=== PATIENT | female | born 1955 ===

== ENCOUNTER 2022-12-12 09:57 | Outpatient (REF) | payer MEDICARE, BC, SELFPAY ==
--- NOTE | ~2022-12-12 | XR_ITS ---
EXAMINATION: XR LUMBOSACRAL SPINE WITH OBLIQUES CLINICAL INFORMATION: Left-sided sciatica COMPARISON: None available. TECHNIQUE: AP, both oblique, flexion and extension and lateral views of the lumbar spine. Lateral view of the lumbosacral junction. FINDINGS: Curvature of the lumbar spine to the left. Mild 3 mm anterior subluxation of L4 with respect L5. This is stable on flexion-extension views. Bone alignment is otherwise normal. No fracture or dislocation. Normal disc spaces. Lower lumbar spine facet arthritis. No pars defect. Atherosclerotic disease. XR/XR lumbar spine 6V w bending IMPRESSION: Degenerative changes.
== END 2022-12-12 09:58 | disposition home or self-care (01) ==
LOC: HO.XRAY 09:57
PROVIDERS: Visit Provider Chiropractor
DX: M54.32 Sciatica, left side (principal)
CPT/HCPCS: 72114

== ENCOUNTER 2023-01-12 08:41 | Emergency (ER) | payer MEDICARE, BC, SELFPAY ==
[2023-01-12 08:49] VITALS: BP 177/62; PULSE 101; RESP 16; TEMP 36.6; O2SAT 99; BMI 22.3
--- NOTE | 2023-01-12 09:45 | ED.BACK ---
HPI - Back Pain/Injury General Chief Complaint: Back Pain/Injury Stated Complaint: l leg pain Time Seen by Provider: 01/12/23 09:24 Source: patient and RN notes reviewed Mode of arrival: ambulatory Limitations: no limitations History of Present Illness HPI Narrative: This is a 67-year-old female, with a past medical history of arthritis,, hyperlipidemia, presenting to the emergency department with complaints of left low back pain x1 month. Patient denies any recent trauma or injury. She states that she believes that she exacerbated back pain over the winter time when she was playing puzzles. She states that she is originally from [place] and is unable to get back to her home as the car ride is too long especially with her low back pain. Patient has gone to an urgent care 2 times over the course of the last month and was given steroid pack and Flexeril which she has taken. She states that the steroids helped her back pain significantly but as soon as she was off of the steroids her pain returned. She states that the muscle relaxant did not help her pain at all. She was seen by a chiropractor who ordered an x-ray through [facility]. She is unsure about these results. She denies any saddle anesthesia, no urinary or bowel incontinence. No fevers, chills, abdominal pain, nausea, vomiting, diarrhea, urinary frequency or urgency, dysuria, or hematuria. No other complaints or concerns at this time. MD elicited complaint: back pain Onset (ago): week(s) Timing: constant and progressively worsening Severity: severe Similar Symptoms Previously: Yes Quality: aching Location: lumbar spine and left lower back Radiation: left leg below the knee Exacerbating factors: movement Relieving factors: none Associated symptoms: denies other symptoms Treatments prior to arrival: NSAIDS Work related injury: No Related Data Previous Rx's Medication Instructions Recorded methocarbamol 500 mg tablet 500 mg PO QID #30 tabs 01/12/23 prednisone 50 mg tablet 50 mg PO DAILY 5 days #5 tabs 01/12/23 Allergies Allergy/AdvReac Type Severity Reaction Status Date / Time Penicillins [PENICILLINS] Allergy Unknown ANGIOEDEMA Unverified 03/18/20 19:35 Review of Systems Review of Systems: Constitutional: No Weight loss, No Fever, No Chills, No Night Sweats, No Fatigue, No Malaise ENT/Mouth: No Hearing loss, No Ear Pain, No Nasal Congestion, No Sinus Pain, No Hoarseness, No sore throat, No Rhinorrhea, No Swallowing Difficulty Eyes: No Eye Pain, No Swelling, No Redness, No Foreign Body, No Discharge, No Vision Changes Cardiovascular: No Chest Pain, No SOB, No Dyspnea on Exertion, No Orthopnea, No Edema, No Palpitations Respiratory: No Cough, No Sputum, No Wheezing, No Smoke Exposure, No Dyspnea Gastrointestinal: No Nausea, No Vomiting, No Diarrhea, No Constipation, No Abdominal pain, No Hematochezia, No Melena Genitourinary: No irregular bleeding, No Dysuria, No Urinary Frequency, No Hematuria, No Urinary Incontinence/retention, No Urgency, No Flank Pain, No Urinary Flow Changes, No Hesitancy Musculoskeletal: +back pain, No joint pain, No Myalgias, No Joint Swelling Skin: No Skin Lesions, No rash Neuro: No Weakness, No Numbness, No Paresthesias, No Loss of Consciousness, No Dizziness, No Headache Psych: No Anxiety/Panic, No Depression, No SI/HI/AH/VH, No Social Issues, Heme/Lymph: No Bruising, No Bleeding,No Lymphadenopathy Endocrine: No Polyuria, No Polydipsia, No Temperature Intolerance Yes all other systems are reviewed and are negative Constitutional: Constitutional: Reports as per [facility] Social History Social History Advance Directives: No Advance Directives Information Provided: No Physical Exam Vital Signs: Vital Signs: Last Vital Signs Temp 98 F 01/12/23 08:49 Pulse 101 H 01/12/23 08:49 Resp 16 01/12/23 08:49 BP 177/62 H 01/12/23 08:49 Pulse Ox 99 01/12/23 08:49 O2 Del Method Room Air 01/12/23 08:49 BMI result Body Mass Index 22.3 Const: General: cooperative, comfortable and no acute distress Orientation/consciousness: patient oriented x3 Limitations: no limitations HEENT: Head: Yes normal to inspection, Yes normocephalic and Yes atraumatic Ears: hearing grossly normal bilaterally General nose exam: Normal external nose present Face and sinus: Yes normal facial exam Mouth: Normal oral and palatal mucosa present, oropharynx normal and moist mucous membranes Throat: Yes posterior oropharynx normal Eyes: General: appearance normal, both eyes and all related structures Eyelids: Yes eyelids normal Conjunctivae: conjunctivae normal Sclerae: sclerae normal Pupils: Equal, round and reactive pupils present EOM: EOMs intact bilaterally Neck: Neck: Yes normal visual inspection, Yes full ROM and Yes no lymphadenopathy Lymphatic: no lymphadenopathy noted Chest: Chest palpation & inspection: normal inspection of the chest Resp: Effort & Inspection: normal respiratory effort and able to speak in complete sentences Auscultation: clear to auscultation bilaterally, no crackles, no rales, no rhonchi and no wheezes Cardio: Rate: regular rate Rhythm: regular rhythm Heart sounds: S1 normal heart sound present and S2 normal heart sound present GI: Other: soft, nontender, nondistended. Inspection: Yes normal to inspection Back/Spine/Pelvis: Other: +left SI joint tenderness to palpation. With left lower lumbar musculature tenderness. No midline lumbar spine tenderness to palpation. DTR 2+. Distal sensation circulation intact Cervical Spine: normal cervical lordosis Thoracic/Lumbar Spine: thoracic and lumbar spine normal to inspection Skin: General skin exam: no rashes or lesions noted Trauma: no lacerations or abrasions Wounds: no wounds Neuro: General: patient oriented x3 and moves all extremities Cranial nerves: Yes Equal, round and reactive pupils present Extrem: General: Yes normal to inspection Right upper extremity: normal to inspection Left upper extremity: normal to inspection Right lower extremity: normal to inspection Left lower extremity: normal to inspection Medications Administered Discontinued Medications Generic Name Dose Route Start Last Admin Trade Name Freq PRN Reason Stop Dose Admin Ketorolac Tromethamine 30 mg 01/12/23 10:01 01/12/23 10:09 Ketorolac Tromethamine 30 Mg/Ml Vial IM 01/12/23 10:02 30 mg ONCE ONE Administration Medical Decision Making Medical Decision Making [facility] Narrative: 67-year-old female presenting to the emergency department for evaluation of ongoing back pain x1 month. She was put on methylpred dose pack, last dose was 2 weeks ago which provided her with significant relief. I think it is reasonable to start her again on a steroids and try a different muscle relaxant. She has MRI scheduled for mid January. Patient encouraged to attend this appointment and to call to see if there are any early appointments. She has no red flag back pain symptoms. Patient medicated and department with Toradol 30 mg IM, discharged on prednisone, muscle relaxants. Patient had x-ray of lumbar spine several weeks ago ordered by chiropractor, which revealed degenerative changes. Patient has no trauma or injury or any other indication to repeat imaging today. No urinary symptoms. Differential Diagnosis Differential Diagnoses: The differential diagnosis associated with the presentation includes Back pain, cauda equina syndrome-un likely, sciatica Admission/Observation Consideration of admission/observation: Escalation of care including admission/observation considered Patient would have been admitted to the hospital had her work up had any findings where hospital admission was appropriate and her clinical presentation warranted hospital admission. Radiology Impression Discussion of test interpretation with radiology: I have reviewed the radiologist's reading. Radiologist Impression: EXAMINATION: XR LUMBOSACRAL SPINE WITH OBLIQUES CLINICAL INFORMATION: Left-sided sciatica? COMPARISON: None available.? TECHNIQUE: AP, both oblique, flexion and extension and lateral views of the lumbar spine. Lateral view of the lumbosacral junction.? FINDINGS: Curvature of the lumbar spine to the left. Mild 3 mm anterior subluxation of L4 with respect L5. This is stable on flexion-extension views. Bone alignment is otherwise normal. No fracture or dislocation. Normal disc spaces. Lower lumbar spine facet arthritis. No pars defect. Atherosclerotic disease. XR/XR lumbar spine 6V w bending IMPRESSION: Degenerative changes.? ? Dictated By: Pily Foley MD External Record Review External record reviewed: Prior outpatient radiology Discharge Plan Discharge Clinical Impression: Sciatica Patient Disposition: Home, Self-Care Instructions: Sciatica (ED), Back Pain (ED), Lower Back Exercises (ED) Additional Instructions: Please take prescribed medication as directed. We gave you an anti-inflammatory call Toradol. Do not take ibuprofen the rest of the day. Continue taking Tylenol as needed for pain and symptoms. Please be aware that muscle relaxants can cause drowsiness, do not drink alcohol or drive while taking this medication. Please follow-up with your primary care physician for further evaluation and treatment. Gentle stretching, warm compresses and massage can help with your symptoms. If any new or worsening symptoms occur including but not limited to urinary incontinence, bowel incontinence or numbness/tingling into your rectal area, please return for re-evaluation. Prescriptions: New prednisone 50 mg tablet 50 mg PO DAILY 5 Days Qty: 5 0RF methocarbamol 500 mg tablet 500 mg PO QID Qty: 30 0RF Interventions: ED Discharge Assessment Last Done: 01/12/23 11:12 Discharge Date/Time: 01/12/23 11:13
[2023-01-12] MEDS: Ketorolac Tromethamine 30 MG/ML VIAL IM (10:09)
== END 2023-01-12 11:13 | disposition home or self-care (01) ==
PROVIDERS: Emergency Provider Emergency Medicine; PCP Internal Medicine
DX: M54.42 Lumbago with sciatica, left side (principal); E78.5 Hyperlipidemia, unspecified; M19.90 Unspecified osteoarthritis, unspecified site
CPT/HCPCS: 96372; 99283; 99284; J1885

== ENCOUNTER 2023-01-17 06:03 | Emergency (ER) | payer MEDICARE, BC, SELFPAY ==
[2023-01-17 06:07] VITALS: BP 164/90; PULSE 100; RESP 18; TEMP 36.6; O2SAT 100; BMI 22.8
[2023-01-17 06:37] VITALS: BP 105/76; PULSE 84; RESP 18; TEMP 36.8; O2SAT 100
[2023-01-17] MEDS: Lidocaine 4 % Patch ADH..PATCH 1 PATCH TRANSDERMA (07:10)
[2023-01-17] MEDS: Ketorolac Tromethamine 15 MG/ML VIAL 30 MG IM (07:11)
--- NOTE | 2023-01-17 07:22 | ED.BACK ---
HPI - Back Pain/Injury General Chief Complaint: Back Pain/Injury Stated Complaint: Back pain Time Seen by Provider: 01/17/23 06:37 Source: patient Mode of arrival: ambulatory Limitations: no limitations History of Present Illness HPI Narrative: 67-year-old female history of back pain presents with acute on chronic lower back pain on the left-hand side worse with movement better at rest. Patient reports it is been present for the past few weeks worsening over the past few days. Denies any inciting trauma. Patient reports she has been seen multiple times for this, recently has been on to tapers of prednisone, was prescribed a muscle relaxer which she is not taking. She is also taking Celebrex, Tylenol for pain. Patient tells me she lives in [place] and has not been able to get there due to the [address] ride she does not think she is able to sit through a 4 hour car ride secondary to pain. She reports that she should be getting an MRI soon with her PCP however unclear on what date. Patient denies urinary/bowel incontinence/retention, saddle paresthesias, weakness, fevers, chills, history of IV drug abuse, vomiting, abdominal pain, chest pain and shortness of breath. Related Data Previous Rx's Medication Instructions Recorded methocarbamol 500 mg tablet 500 mg PO QID #30 tabs 01/12/23 prednisone 50 mg tablet 50 mg PO DAILY 5 days #5 tabs 01/12/23 morphine 15 mg immediate release 15 mg PO Q6H PRN pain 5 days #10 01/17/23 tablet tabs Allergies Allergy/AdvReac Type Severity Reaction Status Date / Time Penicillins [PENICILLINS] Allergy Unknown ANGIOEDEMA Unverified 03/18/20 19:35 Review of Systems Review of Systems: Constitutional : No Weight loss, No Fever, No Chills, ENT/Mouth : No Hearing loss, No Ear Pain, No Nasal Congestion, No Sinus Pain, No Hoarseness, No sore throat, No Rhinorrhea, No Swallowing Difficulty Cardiovascular : No Chest Pain, No SOB Respiratory : No Cough, No Dyspnea Gastrointestinal : No Nausea, No Vomiting, No Diarrhea, No abdominal Pain, No Hematochezia, No Melena Genitourinary : No Dysuria, No Urinary Frequency, No Hematuria, No Urinary Incontinence, Musculoskeletal : positive back pain Skin : No Skin Lesions, No rash Neuro : No Weakness, No Numbness, No Paresthesias, no loss of bowel or bladder incontinence, no saddle anesthesia Yes all other systems are reviewed and are negative [facility] Past Medical History Attestation statement: The following information was validated with the patient. Source: old records reviewed and nursing notes reviewed Social History Social History Alcohol intake: current Alcohol intake frequency: a few times a month Smoked in Last 30 Days: No Use of substances other than those prescribed or required for medical reasons: No Advance Directives: No Advance Directives Information Provided: Yes Physical Exam Vital Signs: Vital Signs: Last Vital Signs Temp 98.0 F 01/17/23 10:33 Pulse 80 01/17/23 10:33 Resp 16 01/17/23 10:33 BP 162/71 H 01/17/23 10:33 Pulse Ox 100 01/17/23 10:33 O2 Del Method Room Air 01/17/23 10:33 BMI result Body Mass Index 22.8 vss Appearance: Alert.? Oriented X3.? No acute distress.? Head: Normocephalic, atraumatic, no step-offs or deformities Eyes: Pupils equal, round and reactive to light.? CVS: Normal heart rate and rhythm.? Pulses normal.? Respiratory: No respiratory distress.? Breath sounds normal.? Abdomen: Soft and nontender.? Skin: Skin warm and dry.? Normal skin color.? Normal skin turgor.? Extremities: No lower extremity edema.? No calf ttp. 5/5 strength to bilateral upper and lower extremities Back: No midline tenderness, no C-spine tenderness, full range of motion, no CVA tenderness bilaterally + left sided lumbar paraspinous tenderness to palpation and into L sided buttocks. Neuro: Oriented X 3.? No motor deficit.? No sensory deficit. CN 2-12 intact. Ambulating w/ steady gait normal coordination. No saddle paresthesias. Course Reevaluation(s) Reevaluation #1: Ambulating with steady gait normal coordination. Feeling better. Educated patient on diagnosis and treatment plan, answered all question, patient verbalizes understanding. At this time patient will be discharged home, advised to return with new or worsening symptoms. Educated on worrisome signs and symptoms and when to return. At this time I feel comfortable discharge home. Time: 11:41 Medications Administered Discontinued Medications Generic Name Dose Route Start Last Admin Trade Name Mahamed PRN Reason Stop Dose Admin Ketorolac Tromethamine 30 mg 01/17/23 06:54 01/17/23 07:11 Ketorolac Tromethamine 15 Mg/Ml Vial IM 01/17/23 06:55 30 mg ONCE ONE Administration Lidocaine 1 patch 01/17/23 06:54 01/17/23 07:10 Lidocaine 4 % Patch Adh..Patch TRANSDERMA 01/17/23 06:55 1 patch ONCE ONE Administration Protocol Morphine Sulfate 15 mg 01/17/23 09:10 01/17/23 09:37 Morphine Sulfate Immed Release 15 Mg Tablet PO 01/17/23 09:11 15 mg ONCE ONE Administration Medical Decision Making Medical Decision Making MDM Narrative: 0700 67 yo f presents w/ acute on chornic left lower back pain X weeks wrosening over the past few days PE significant for left sided lumbar paraspinous tenderness to palpation and into L sided buttocks. Likely sciatica vs lumbar radiculopathy, vs lumbar paraspinous spasms vs lumbago vs herniated disc. Unlikely epidural abscess, cauda equina, cord compression. No red flag symptoms. Plan at this time pain control. Patient has had multiple imaging modalities of her back no need for repeat imaging at this time. No red flag symptoms. Upon chart review it appears as though patient was seen here on 01/12/2023 for same symptoms, at that time she was discharged with methocarbamol, prednisone. Differential Diagnosis Differential Diagnoses: The differential diagnosis associated with the presentation includes Likely sciatica vs lumbar radiculopathy, vs lumbar paraspinous spasms vs lumbago vs herniated disc. Unlikely epidural abscess, cauda equina, cord compression. No red flag symptoms. Admission/Observation Consideration of admission/observation: Escalation of care including admission/observation considered Unlikely Lab Data Labs: No indication Tests considered The following testing was considered but not selected: No indication for imaging at this time, atraumatic, no red flag symptoms. Core Measures AMI core measures followed: Yes Measure exclusions: not indicated Critical Care Time Critical Care Time Critical Care Time: No Discharge Plan Discharge Clinical Impression: Lumbar radiculopathy Patient Disposition: Home, Self-Care Instructions: Lumbar Radiculopathy (ED), Back Pain (ED), Lower Back Exercises (ED) Additional Instructions: Take your medications as prescribed. If you were prescribed antibiotics today, it is important that you take your medication to their entirety, do not skip any doses, do not finish them early. Follow-up with your primary care provider this week. Return to the emergency department with new or worsening symptoms. Such as fevers, chills, chest pain, shortness of breath, nausea, vomiting, dizziness, headache, vision changes, lethargy In case of emergency call 911 A narcotic has been sent to your pharmacy please take this as prescribed. Do not take more than the prescribed dose. Narcotic medications can cause addiction. Please do not mix them with alcohol. Do not take them while driving or operating machinery. Do not take them with any other narcotics. Do not share them with friends or family. They can cause constipation. Take them only for severe pain. Prescriptions: New morphine 15 mg tablet 15 mg PO Q6H PRN (Reason: pain) 5 Days Qty: 10 0RF Rx Instructions: Partial Fill upon patient request. No Action prednisone 50 mg tablet 50 mg PO DAILY 5 Days Qty: 5 0RF methocarbamol 500 mg tablet 500 mg PO QID Qty: 30 0RF Referrals: Marquis Montes MD [Primary Care Provider] - 2 days
--- NOTE | 2023-01-17 07:34 | PC.NURSE ---
assumed care of this pt at 0700. pt a&o x4, restless, and teary. rating 10/10 pain. pt appears to not be able to get in a comfortable position. pt medicated per aug. rr even/unlabored. wctm
[2023-01-17] MEDS: Morphine Sulfate Immed Release 15 MG TABLET PO (09:37)
[2023-01-17 10:33] VITALS: BP 162/71; PULSE 80; RESP 16; TEMP 36.7; O2SAT 100
== END 2023-01-17 11:45 | disposition home or self-care (01) ==
PROVIDERS: Emergency Provider Emergency Medicine; PCP Internal Medicine
DX: M54.16 Radiculopathy, lumbar region (principal)
CPT/HCPCS: 96372; 99284; J1885

== ENCOUNTER 2023-08-15 13:11 | Emergency (ER) | payer MEDICARE, BC, SELFPAY ==
--- NOTE | 2023-08-15 | ECG_ITS ---
Test Reason : cp Blood Pressure : / mmHG Vent. Rate : 073 BPM Atrial Rate : 073 BPM P-R Int : 176 ms QRS Dur : 066 ms QT Int : 374 ms P-R-T Axes : 073 025 047 degrees QTc Int : 412 ms Normal sinus rhythm Septal infarct , age undetermined Abnormal ECG When compared with ECG of 04-MAY-2018 12:32, No significant change was found Referred By: Generic ED Physician Electronically Signed By:Vincent Rock
--- NOTE | ~2023-08-15 | CT_ITS ---
EXAMINATION: CT HEAD WITHOUT CONTRAST CLINICAL INFORMATION: Headaches COMPARISON: None available. TECHNIQUE: Contiguous axial imaging was performed from the skull base to vertex without intravenous administration of contrast. This CT examination was performed using dose optimization techniques as appropriate, variously including the following: *Automated exposure control *Adjustment of mA and/or kV according to patient size (this includes techniques or standardized protocols for targeted exams where dose is matched to indication/reason for exam; i.e. extremities or head) *Use of iterative reconstruction technique DLP: 577 mGy-cm FINDINGS: No intra or extra-axial fluid collection, hemorrhage, mass, or mass effect. Calvarium intact. CT/CT head/brain wo IV con IMPRESSION: No acute intracranial pathology.
[2023-08-15 13:20] VITALS: BP 190/93; PULSE 89; RESP 18; TEMP 36.3; O2SAT 95; BMI 22.7
[2023-08-15 14:13] LABS: MANUAL DIFF FLAG NO
[2023-08-15 14:14] LABS: Basophils Absolute Auto 0.1 X10*3/uL (0.0-0.2); Basophils Percent Auto 0.5 % (0-2); Eosinophils Absolute Auto 0.1 X10*3/uL (0.0-0.4); Eosinophils Percent Auto 0.8 % (0-4); Hematocrit 37.4 % (37.0-47.0); Hemoglobin 12.4 g/dl (12.0-16.0); Imm Gran Abs Auto 0.03 X10*3/uL (0.00-0.03); Imm Gran Pct Auto 0.3 % (0.0-0.4); Lymphocytes Absolute Auto 3.3 X10*3/uL (1.2-4.9); Lymphocytes Percent Auto 30.7 % (20-40); Mean Corpuscular HGB Conc 33.2 g/dl (31.0-35.0); Mean Corpuscular Hemoglobin 29.2 pg (27.0-33.0); Mean Platelet Volume 11.4 fL (9.4-12.3); Monocytes Absolute Auto 0.5 X10*3/uL (0.1-1.2); Neutrophils Absolute Auto 6.8 x10*3/uL (2.0-8.3); Neutrophils Percent Auto 62.7 % (45-73); Platelet Count 306 X10*3/uL (160-400); Red Blood Count 4.25 X10*6/uL (4.20-5.50); Red Cell Distribution Width 14.2 % (11.0-16.0); White Blood Count 10.9 X10*3/uL (4.8-10.8)
[2023-08-15 14:27] LABS: Alanine Aminotransferase 16 U/L (0-31); Albumin Level 4.2 g/dL (3.5-5.0); Alkaline Phosphatase 144 U/L (39-117); Anion Gap 12 (12-20); Aspartate Amino Transferase 20 U/L (5-31); Bilirubin Total 0.2 mg/dL (0.0-1.0); Blood Urea Nitrogen 25 mg/dL (9-16); Calcium 9.9 mg/dL (8.4-10.2); Carbon Dioxide 25 mmol/L (22-29); Chloride 108 mmol/L (96-108); Creatinine Clr Calc Pharmacy 49.6; Estimated Glomerular Filt Rate > 60; Glucose Random 98 mg/dL (60-115); Potassium 3.9 mmol/L (3.3-5.1); Sodium 141 mmol/L (135-145); Total Protein 7.8 g/dL (6.5-8.0)
[2023-08-15 15:37] VITALS: BP 187/73; PULSE 74; RESP 16; TEMP 36.6
--- NOTE | 2023-08-15 15:44 | MHC.EDTECH ---
THIS PCT ASSUMED CARE OF PATIENT AT 1500 ,VITALS TAKEN ,PT WAS HOOKED UP TO DIRECT SUPPORT PROFESSIONAL ,RN YESENIA IS AWARE OF PT HIGH BP .
--- NOTE | 2023-08-15 16:03 | ED_ITS ---
HPI - General Adult General Chief complaint: Dizziness Stated complaint: High Blood Pressure Time Seen by Provider: 08/15/23 16:01 Source: patient and old records reviewed Limitations: no limitations History of Present Illness HPI narrative: 68 yo female with PMH of HTN, HLD, anxiety, on amlodipine 5mg daily for 6 years notes 1 month of intermittent daily frontal headaches, feels drunk at times like she cannot walk, blurred vision and for the past two 2 weeks BP at home greater than 180 systolic. She went to PCP today and they referred her to ED. She is compliant with with her medications no new changes, illness, supplements or OTC cough or cold medications. MD complaint: HTN Onset (ago): week(s) (4) Location: head Radiation: non-radiation Severity: moderate Quality: aching and dull Pain Consistency: intermittent Relieving factors: none Exacerbating factors: none Associated symptoms: other (dizziness, foggy, intermittent blurred vision) Treatments prior to arrival: none Related Data Previous Rx's Medication Instructions Recorded methocarbamol 500 mg tablet 500 mg PO QID #30 tabs 01/12/23 prednisone 50 mg tablet 50 mg PO DAILY 5 days #5 tabs 01/12/23 morphine 15 mg immediate release 15 mg PO Q6H PRN pain 5 days #10 01/17/23 tablet tabs amlodipine 10 mg tablet 10 mg PO DAILY #30 tabs 08/15/23 lisinopril 5 mg tablet 5 mg PO DAILY #30 tabs 08/15/23 Allergies Allergy/AdvReac Type Severity Reaction Status Date / Time Penicillins [PENICILLINS] Allergy Unknown ANGIOEDEMA Verified 08/15/23 13:20 Review of Systems 2 Review of Systems: Constitutional : No Fever, No Chills, No Fatigue ENT/Mouth : No sore throat, No Rhinorrhea Eyes: No Eye Pain, No Swelling, No Redness Cardiovascular : No Chest Pain, No SOB, No Dyspnea on Exertion Respiratory : No Cough, No Sputum Gastrointestinal : No Nausea, No Vomiting, No Diarrhea, No abdominal Pain Genitourinary : No Dysuria, No Urinary Frequency, No Hematuria, Musculoskeletal : No joint pain, No Myalgias, No Joint Swelling Skin : No Skin Lesions, No rash Neuro : No Weakness, No Numbness, pos Dizziness, positive Headache Psych : No Anxiety/Panic, No Depression Heme/Lymph: No Bruising, No Bleeding,No Lymphadenopathy Endocrine : No Polyuria, No Polydipsia All other systems reviewed and are negative [facility] Past Medical History Attestation statement: The following information was validated with the patient. Source: old records reviewed Medical History Anxiety Hyperlipidemia HTN (hypertension) Social History Social History Alcohol intake: current Alcohol intake frequency: 0-2 drinks per day Patient Tobacco Use Status: Never used Tobacco Smoked in Last 30 Days: Yes Substance Use Type: Marijuana Advance Directives: No Advance Directives Information Provided: No Physical Exam ED Vital Signs: Vital Signs - 24 hr 08/15/23 13:20 08/15/23 15:37 08/15/23 16:36 Temperature 97.3 F 97.8 F Pulse Rate 89 74 72 Respiratory Rate 18 16 14 Blood Pressure 190/93 H 187/73 H 170/64 H Pulse Oximetry 95 Oxygen Delivery Method Room Air Room Air BMI result Body Mass Index 22.7 Appearance: Alert. Oriented X3. No acute distress. Eyes: Pupils equal, round and reactive to light. ENT: Pharynx normal. Neck: Normal inspection. Neck supple. CVS: Normal heart rate and rhythm. Pulses normal. Respiratory: No respiratory distress. Breath sounds normal. Abdomen: Soft and nontender. Skin: Skin warm and dry. Normal skin color. Normal skin turgor. Extremities: No lower extremity edema. No calf ttp Neuro: Oriented X 3. No motor deficit. No sensory deficit. no drift, no ataxia NIH Stroke Scale Internal: Initial- Upon Arrival Level of Consciousness: Alert Level of Consciousness Questions: Answers both questions correctly Level of Consciousness Commands: Performs both tasks correctly Best Gaze: Normal Visual: No visual loss Facial Palsy: Normal Motor Arm (Right): No drift Motor Arm (Left): No drift Motor Leg (Right): No drift Motor Leg (Left): No drift Limb Ataxia: Absent Sensory: Normal Best Language: No aphasia Dysarthia: Normal Extinction and Inattention: No abnormality Score: 0 Course Course Course Narrative: patient walked out of ED prior to BP recheck and DC instructions Medications Administered Discontinued Medications Generic Name Dose Route Start Last Admin Trade Name Freq PRN Reason Stop Dose Admin Amlodipine Besylate 5 mg 08/15/23 16:19 08/15/23 16:32 Amlodipine Besylate 5 Mg Tablet PO 08/15/23 16:20 5 mg ONCE ONE Administration Protocol Lisinopril 5 mg 08/15/23 16:20 08/15/23 16:32 Lisinopril 5 Mg Tablet PO 08/15/23 16:21 5 mg ONCE ONE Administration Protocol Medical Decision Making Medical Decision Making MDM Narrative: 68 yo female with PMH of HTN, HLD, anxiety, on amlodipine 5mg daily here with 1 month of intermittent headaches, dizziness, blurred vision with reported BPs at home of 180s that she has documented for the past two weeks no precipitating events and she is compliant with medications. At this time she has no signs of end organ damage clinically. Will obtain labs, EKG, CT head for stroke in past month though NIH is 0. Will start on additional 5mg of amlodipine and start on lisinopril 5mg orally. Will observe for decrease in BP Differential Diagnosis Differential Diagnoses: The differential diagnosis associated with the presentation includes HTN, CVA in last month, new SERGE Admission/Observation Consideration of admission/observation: Escalation of care including admission/observation considered BP trending down NIH 0 no focal deficits or signs of acute end organ damage at this time Lab Data [facility] Lab Attestation statement: I reviewed the patient's lab results. 08/15/23 14:07 08/15/23 14:07 Labs: Lab Results 08/15/23 Range/Units 14:07 WBC 10.9 H (4.8-10.8) X10*3/uL RBC 4.25 (4.20-5.50) X10*6/uL Hgb 12.4 (12.0-16.0) g/dl Hct 37.4 (37.0-47.0) % MCV 88.0 (80.0-98.0) fL MCH 29.2 (27.0-33.0) pg MCHC 33.2 (31.0-35.0) g/dl RDW 14.2 (11.0-16.0) % Plt Count 306 (160-400) X10*3/uL MPV 11.4 (9.4-12.3) fL Immature Gran % (Auto) 0.3 (0.0-0.4) % Neut % (Auto) 62.7 (45-73) % Lymph % (Auto) 30.7 (20-40) % [place] % (Auto) 5.0 (2-11) % Eos % (Auto) 0.8 (0-4) % Baso % (Auto) 0.5 (0-2) % Lymph # (Auto) 3.3 (1.2-4.9) X10*3/uL [place] # (Auto) 0.5 (0.1-1.2) X10*3/uL Eos # (Auto) 0.1 (0.0-0.4) X10*3/uL Baso # (Auto) 0.1 (0.0-0.2) X10*3/uL Abs Immat Gran (auto) 0.03 (0.00-0.03) X10*3/uL Absolute Neuts (auto) 6.8 (2.0-8.3) x10*3/uL Absolute Nucleated RBC 0.000 (0.0-0.012) X10*3/uL Nucleated RBC % (auto) 0.0 (0.0-0.2) /100WBC Sodium 141 (135-145) mmol/L Potassium 3.9 (3.3-5.1) mmol/L Chloride 108 (96-108) mmol/L Carbon Dioxide 25 (22-29) mmol/L Anion Gap 12 (12-20) BUN 25 H (9-16) mg/dL Creatinine 0.91 (0.5-1.4) mg/dL Estim Creat Clear Calc 49.6 Estimated GFR > 60 Random Glucose 98 (60-115) mg/dL Calcium 9.9 (8.4-10.2) mg/dL Total Bilirubin 0.2 (0.0-1.0) mg/dL AST 20 (5-31) U/L ALT 16 (0-31) U/L Alkaline Phosphatase 144 H (39-117) U/L Troponin I High Sens 3.0 (<3.5-17.0) ng/L Total Protein 7.8 (6.5-8.0) g/dL Albumin 4.2 (3.5-5.0) g/dL Independent Interpretation I performed an independent interpretation of an: EKG and CT Scan (normal ) Interpretation: Rate: 73 Rhythm: NSR [place]: normal Normal P waves. Normal ASHLEY. Normal QRS complex. ST T wave : normal no VENANCIO qTC: 412 prior studies: no acute ischemia The study has been interpreted contemporaneously by me. . Radiology Impression Discussion of test interpretation with radiology: I have reviewed the radiologist's reading. Independent Historian Clinical information obtained from an independent historian. History obtained from or confirmed by: Friend External Record Review External record reviewed: Outpatient record Prescription Management I considered prescription management with: Other Discharge Plan Discharge Clinical Impression: HTN (hypertension) Qualifiers: Hypertension type: unspecified Qualified Code(s): I10 - Essential (primary) hypertension Patient Disposition: Left W/O Completing Treatment Instructions: Chronic Hypertension (ED), DASH Eating Plan (ED) Additional Instructions: monitor your blood pressure closely - will increase amlodipine to 10mg daily and add on lisinopril 5mg daily. return for dizziness, weakness, numbness. hold lisinopril if blood pressure is below 120. follow up closely with your doctor. any tongue or lip swelling please seek immediate care your labs, EKG and CT scan were reassuring. Prescriptions: New amlodipine 10 mg tablet 10 mg PO DAILY Qty: 30 0RF lisinopril 5 mg tablet 5 mg PO DAILY Qty: 30 0RF No Action morphine 15 mg tablet 15 mg PO Q6H PRN (Reason: pain) 5 Days Qty: 10 0RF Rx Instructions: Partial Fill upon patient request. prednisone 50 mg tablet 50 mg PO DAILY 5 Days Qty: 5 0RF methocarbamol 500 mg tablet 500 mg PO QID Qty: 30 0RF
[2023-08-15] MEDS: lisinopriL 5 MG TABLET PO (16:32)
[2023-08-15] MEDS: amLODIPine Besylate 5 MG TABLET PO (16:32)
[2023-08-15 16:36] VITALS: BP 170/64; PULSE 72; RESP 14
--- NOTE | 2023-08-15 18:39 | PC.NURSE ---
late entry: pt was a&o x4, calm, and cooperative. sitting on stretcher, BP taken, elevated, medicated per mar with BP meds. MD went to reevaluate pt, pt appeared to be anxious. BP still elevated. went to go in to take BP again and pt was gone. eloped without completement of treatment. MD and charge aware. pt did not have IV.
== END 2023-08-15 18:42 | disposition left against medical advice (07) ==
PROVIDERS: Emergency Provider Emergency Medicine; PCP Physician Assistant Medical
DX: I10 Essential (primary) hypertension (principal); E78.5 Hyperlipidemia, unspecified; F41.9 Anxiety disorder, unspecified; Z79.899 Other long term (current) drug therapy
CPT/HCPCS: 36415; 70450; 80053; 84484; 85025; 93005; 99284

== ENCOUNTER → 2023-08-15 14:01 | Outpatient (BNV) | payer MEDICARE, BC, SELFPAY | PROVIDERS: Emergency Provider Emergency Medicine; PCP Physician Assistant Medical; Visit Provider Internal Medicine Cardiovascular Disease | DX: R94.31 Abnormal electrocardiogram [ECG] [EKG] (principal) | CPT/HCPCS: 93010 ==

== ENCOUNTER → 2023-08-30 11:25 | Outpatient (BNVA) | payer MEDICARE, BC, SELFPAY | PROVIDERS: PCP Physician Assistant Medical; Visit Provider Anesthesiology | DX: M19.011 Primary osteoarthritis, right shoulder (principal); M47.816 Spondylosis without myelopathy or radiculopathy, lumbar region; M96.1 Postlaminectomy syndrome, not elsewhere classified; M48.061 Spinal stenosis, lumbar region without neurogenic claudication; M54.59 Other low back pain; G89.4 Chronic pain syndrome | CPT/HCPCS: 99202 ==

== ENCOUNTER 2023-08-30 11:26 | Outpatient (AMB) | payer MEDICARE, BC, SELFPAY ==
--- NOTE | 2023-08-30 11:26 | A.OFFVIS_ITS ---
Intake Vital Signs 08/30/23 11:39 Height 5 ft 3 in Weight 126 lb BMI 22.3 BP 130/72 Blood Pressure Location Lt brachial Position Sitting Respiration 14 Pulse 79 Pulse Source Pulse Oximeter Pulse Oximetry (%) 98 Oxygen Delivery Method Room Air Intake Visit Reasons: R Shoulder pain/ Lowback pain/Hip pain/ confirm Intake Note: Patient comes in for initial visit was referred by primary care. Reports pain 09/08. Allergies Penicillins [PENICILLINS] Allergy (Unknown, Verified 08/30/23 11:38) ANGIOEDEMA HPI HPI Comments History of Present Illness Details Lise is very pleasant 68 years old female who is in my office with complains on pain in the lower back without radiation on the lower extremities as well as pain in the right shoulder. She reports that pain in the back started 6 years ago he had 2 surgeries on her lower back because of some lower back cysts. At that time she had pain radiating into the right lower extremity with tingling and numbing sensation however after surgery this sensation went away. Pain in lower back remains and prevents her from doing activities of daily living. She reports that walking upstairs hurts more than walking downstairs flexing backwards hurtful more than flexing forward sitting hurts more than standing or laying down. She finds easier to walk leaning over the cart when she is shopping in the supermarket. The pain in the shoulder starts in the armpit and goes around the right shoulder. She reports that she can not sleep normally because of her pain can not do activities of daily living she can not take care of herself she can not function normally she is currently retired individual. In terms of tissue damage he reports her pain as throbbing, cramping, dull, hurting, heavy, tiring, exhausting. She takes Advil Tylenol and Celebrex for her pain. She had MRI of the lumbar spine results of which are not available to. She denies any hardware in the lumbar spine. She reports th at before surgery in January she went for physical therapy she had several sessions which greatly aggravated her pain she refused to continue physical therapy. MRI records are not available for me today. She had some sort of injection in her lumbar spine, she she had this injection done ?to drain cyst in the spine. ?She reports that 1st injection relieved her pain for few weeks, after pain returned the 2nd injection was tried and according to her ?I was paralyzed from the waist down after this injection. ?She does not know the nature of the procedure she had on her lower back she stated that procedure was done at L3-L4 interval, however her scar is positioned in the projection of L4 and L5 vertebral spinous processes see as below. Her medical history significant for hypertension and osteoporosis, her past surgical history significant for 2 surgeries in the back. She admits smoking cigarettes 6 cigarettes a day for 30 years. She drinks 1 drink a night of alcohol. She drinks 2 cups of coffee a day. She smokes cannabis every day. [facility] Medical History Anxiety Hyperlipidemia HTN (hypertension) Social History Alcohol intake: current Alcohol intake frequency: 0-2 drinks per day Patient Tobacco Use Status: Never used Tobacco Substance Use Type: Marijuana Review of Systems Const Reports no additional complaints Eyes Reports requires corrective lenses ENT Reports Normal hearing present Card Reports no additional complaints Resp Reports no additional complaints GI Reports no additional complaints Reports no additional complaints Musc Reports as per HPI Neuro Reports no additional complaints, Reports Normal hearing present, Denies Abnormal speech present and Denies Sensory deficit (Neuro) Psych Reports no additional complaints Physical Exam Vital Signs: Last Vital Signs Pulse 79 08/30/23 11:39 Resp 14 08/30/23 11:39 BP 130/72 08/30/23 11:39 Pulse Ox 98 08/30/23 11:39 Oxygen Delivery Method Room Air 08/30/23 11:39 BMI result Body Mass Index 22.3 Const General: no acute distress Nutritional Appearance: average body habitus and well nourished Orientation/consciousness: patient oriented x3 Limitations: no limitations Eyes General: appearance normal, both eyes and all related structures Pupils: Equal, round and reactive pupils present EOM: EOMs intact bilaterally Neck Neck: Yes full ROM Chest Chest palpation & inspection: normal inspection of the chest Resp Effort & Inspection: normal respiratory effort, able to speak in complete sentences, normal respiratory pattern, no audible wheezes and no cough Cardio Jugular venous distension: no JVD GI Inspection: Yes normal to inspection Back/Spine/Pelvis Other: Able to walk without difficulty on bilateral tiptoes and bilateral heels demonstrating normal strength of bilateral lower extremities. Flexing forward and flexing backwards aggravate the pain however flexing backwards aggravate pain more than flexing forward. On inspection there is a scar in the projection of L4 and L5 spinous processes possibly as low as S1. There is tenderness on palpation of projection of L5-S1 vertebra. There is also tenderness on palpation in paraspinal regions L3-L4 L5 and S1. Loading test is positive bilaterally. Valsalva maneuvers negative for pain increase. Willy test is negative bilaterally. SLR is negative bilaterally. Lassegue test is negative bilaterally. Neuro General: patient oriented x3 and gait normal Cranial nerves: Yes CN's II-XII intact bilaterally, Yes Equal, round and reactive pupils present, Yes Normal hearing present and Yes Ability to bi laterally elevate shoulders present Speech: No Abnormal speech present Gait exam (Neuro): Normal gait present Motor exam (neuro): 5/5 motor strength present throughout Sensory Exam: No Sensory deficit (Neuro) Extrem Other: Normal strength of the right shoulder, normal range of motion no crepitus. General: No pedal edema Psych Speech and movement: Normal speech and movement present Affect: normal affect Attitude: cooperative Thought process: Normal thought process present Thought content: Normal thought content present Insight: Good insight present (Psych) Judgement: Good judgement present (Psych) Assessment & Plan Assessment & Plan (1) Arthritis of right shoulder region: Code(s): M19.011 - Primary osteoarthritis, right shoulder (2) Spondylosis of lumbar region without myelopathy or radiculopathy: Code(s): M47.816 - Spondylosis without myelopathy or radiculopathy, lumbar region (3) Postlaminectomy syndrome, lumbar: Code(s): M96.1 - Postlaminectomy syndrome, not elsewhere classified (4) Spinal stenosis, lumbar: Code(s): M48.061 - Spinal stenosis, lumbar region without neurogenic claudication (5) Chronic pain syndrome: Code(s): G89.4 - Chronic pain syndrome (6) Intractable low back pain: Code(s): M54.59 - Other low back pain Plan 1. I will send this patient for x-rays of the right shoulder. 2. I will request medical information release from [facility] in [place], I need the description of the procedures this patient had as well as MRI of the lumbar spine most recent. 3. I will schedule this patient for bilateral L3-L4 dorsal ramus L5 medial branch blocks diagnostic in the attempt to find out where her pain in the back is coming from. 4. I will see this patient few days after medial branch blocks. 5. If there are significant changes on the patient's shoulder x-ray I will offer her therapeutic steroid injections. Orders: Orders XR shoulder RT min 2V Today M19.011 - Primary osteoarthritis, right shoulder Patient Instructions: I here by testify that I spent 47 minute in conversation of this with this patient as well as evaluating her primary care physician records, planning her care, ordering her studies, and organizing this note. Coding Level of Care Code New Pt Level 4 (23093) Diagnoses Arthritis of right shoulder region M19.011 Spondylosis of lumbar region without myelopathy or radiculopathy M47.816 Postlaminectomy syndrome, lumbar M96.1 Spinal stenosis, lumbar M48.061 Chronic pain syndrome G89.4 Intractable low back pain M54.59
[2023-08-30 11:39] VITALS: BP 130/72; PULSE 79; RESP 14; O2SAT 98; BMI 22.3
== END 2023-08-30 12:00 | disposition home or self-care (01) ==
PROVIDERS: PCP Physician Assistant Medical; Visit Provider Anesthesiology
DX: M19.011 Primary osteoarthritis, right shoulder (principal); M47.816 Spondylosis without myelopathy or radiculopathy, lumbar region; M96.1 Postlaminectomy syndrome, not elsewhere classified; M48.061 Spinal stenosis, lumbar region without neurogenic claudication; G89.4 Chronic pain syndrome; M54.59 Other low back pain
CPT/HCPCS: 99204

== ENCOUNTER 2024-02-06 07:17 | Emergency (ER) | payer MEDICARE, BC, SELFPAY ==
--- NOTE | ~2024-02-06 | US_ITS ---
EXAMINATION: US RETROPERITONEAL COMPLETE (RENAL) CLINICAL INFORMATION: Hematuria, pain. COMPARISON: None available. TECHNIQUE: Real-time imaging of the kidneys and bladder. Limited visualization due to bowel gas. FINDINGS: RIGHT KIDNEY: 9.0 x 4.1 x 4.4 cm (SAG x AP x TRV). Mild fullness right renal pelvis. No renal calculi. Renal cortical thickness is normal. Limited visualization. LEFT KIDNEY: 8.5 x 4.8 x 4.4 cm (SAG x AP x TRV). No hydronephrosis. No renal calculi. Renal cortical thickness is normal. Limited visualization. BLADDER: Partially distended, limiting evaluation. Bilateral ureteral jets are demonstrated. Prevoid bladder volume is 56.9 mL. Postvoid bladder volume images were not obtained as they were not requested by referring physician. US/US retroperitoneal comp IMPRESSION: 1. Mild fullness right renal pelvis. No renal calculi. 2. Limited visualization due to bowel gas. This study was presented today February 06, 2024 for interpretation. Stat results provided at this time as requested by referring provider.
[2024-02-06 07:21] VITALS: BP 162/59; PULSE 85; RESP 18; TEMP 36.6; O2SAT 98; BMI 22.3
--- NOTE | 2024-02-06 07:41 | ED.FEMALEGU ---
HPI - Female Genitourinary General Chief complaint: Urogenital-Female Stated complaint: blood in urine Time Seen by Provider: 02/06/24 07:18 Source: patient and old records reviewed Mode of arrival: ambulatory Limitations: no limitations History of Present Illness ED Provider: MANDA KAUR Narrative: 68 yo female with PMH of HTN, HLD, arthritis, osteoporosis not on thinners or aspirin just started on osteo bi flex here with c/o 4 days of hematuria and now with some suprapubic abdominal pain. No fevers, nausea vomiting. Has no hx of kidney stones. Has not had a UTI since she was a teenager. MD elicited complaint: other (hematuria) Onset (ago): day(s) (4) Location of symptoms: suprapubic Severity: mild Quality of pain: dull Consistency: intermittent Urinary symptoms: Hematuria Exacerbating factors: none Relieving factors: none Associated symptoms: abdominal pain Treatment prior to arrival: none Related Data Home Medications ?Medication ?Instructions ?Recorded ?Confirmed atorvastatin 40 mg tablet 40 mg PO DAILY 08/30/23 bupropion HCl 150 mg tablet,12 hr 150 mg PO BID 08/30/23 sustained-release Previous Rx's ?Medication ?Instructions ?Recorded methocarbamol 500 mg tablet 500 mg PO QID #30 tabs 01/12/23 prednisone 50 mg tablet 50 mg PO DAILY 5 days #5 tabs 01/12/23 morphine 15 mg immediate release 15 mg PO Q6H PRN pain 5 days #10 01/17/23 tablet tabs amlodipine 10 mg tablet 10 mg PO DAILY #30 tabs 08/15/23 lisinopril 5 mg tablet 5 mg PO DAILY #30 tabs 08/15/23 levofloxacin 500 mg tablet 500 mg PO DAILY #7 tabs 02/06/24 Allergies Allergy/AdvReac Type Severity Reaction Status Date / Time Penicillins [PENICILLINS] Allergy Unknown ANGIOEDEMA Verified 02/06/24 07:22 Review of Systems Review of Systems: Constitutional : No Weight loss, No Fever, No Chills ENT/Mouth : No sore throat, No Rhinorrhea Eyes: No Swelling, No Redness Cardiovascular : No Chest Pain, No SOB, No edema Respiratory : No Cough, No Sputum, No Wheezing Gastrointestinal : no Nausea, no Vomiting, no Diarrhea, positive abdominal Pain, No Hematochezia, No Melena Genitourinary : No Dysuria, No Urinary Frequency, pos Hematuria, No Urgency Musculoskeletal : No joint pain, No Myalgias, No Joint Swelling Skin : No Skin Lesions, No rash Neuro : No Weakness, No Numbness, No Dizziness, No Headache Psych : No Anxiety/Panic, No Depression All other systems reviewed and are negative. [facility] Past Medical History Attestation statement: The following information was validated with the patient. Source: old records reviewed Medical History Anxiety Hyperlipidemia HTN (hypertension) Social History Social History Alcohol intake: current Alcohol intake frequency: 0-2 drinks per day Patient Tobacco Use Status: Never used Tobacco Substance Use Type: Marijuana Advance Directives: No Advance Directives Information Provided: Yes Do you have a plan to hurt others: No Plan Physical Exam Vital Signs: Vital Signs: Last Vital Signs Temp 97.4 F 02/06/24 08:00 Pulse 67 02/06/24 08:00 Resp 18 02/06/24 07:21 BP 143/57 H 02/06/24 08:00 Pulse Ox 97 02/06/24 08:00 O2 Del Method Room Air 02/06/24 08:00 BMI result Body Mass Index 22.3 Appearance: Alert. Oriented X3. No acute distress. Eyes: Pupils equal, round and reactive to light. ENT: Pharynx normal. Neck: Normal inspection. Neck supple. CVS: Normal heart rate and rhythm. Pulses normal. Respiratory: No respiratory distress. Breath sounds normal. Abdomen: Soft and non-tender. no CVA ttp Skin: Skin warm and dry. Normal skin color. Extremities: No lower extremity edema. Neuro: Oriented X 3. No motor deficit. No sensory deficit. Medical Decision Making Medical Decision Making MDM Narrative: 68 yo female with PMH of HTN, HLD, arthritis, osteoporosis not on thinners or aspirin here with hematuria but no severe pain on exam consistent with stone at this time will need labs, UA, US to rule out stone/cyst/hemorrhage. She is not toxic appearing. Unsure if this is related to recent osteo bi flex usage. Overall well appearing. Could just be hemorrhage cystitis. Differential Diagnosis Differential Diagnoses: The differential diagnosis associated with the presentation includes UTI, cyst, stone, reaction to glucosamine Admission/Observation Consideration of admission/observation: Escalation of care including admission/observation considered not toxic will dc home on levofloxacin Lab Data MDM Lab Attestation statement: I reviewed the patient's lab results. 02/06/24 08:24 02/06/24 08:24 Labs: Lab Results 02/06/24 Range/Units 08:24 WBC 9.4 (4.8-10.8) X10*3/uL RBC 4.06 L (4.20-5.50) X10*6/uL Hgb 12.2 (12.0-16.0) g/dl Hct 37.0 (37.0-47.0) % MCV 91.1 (80.0-98.0) fL MCH 30.0 (27.0-33.0) pg MCHC 33.0 (31.0-35.0) g/dl RDW 13.2 (11.0-16.0) % Plt Count 280 (160-400) X10*3/uL MPV 11.6 (9.4-12.3) fL Immature Gran % (Auto) 0.5 H (0.0-0.4) % Neut % (Auto) 61.1 (45-73) % Lymph % (Auto) 29.9 (20-40) % [place] % (Auto) 6.5 (2-11) % Eos % (Auto) 1.2 (0-4) % Baso % (Auto) 0.8 (0-2) % Lymph # (Auto) 2.8 (1.2-4.9) X10*3/uL [place] # (Auto) 0.6 (0.1-1.2) X10*3/uL Eos # (Auto) 0.1 (0.0-0.4) X10*3/uL Baso # (Auto) 0.1 (0.0-0.2) X10*3/uL Abs Immat Gran (auto) 0.05 H (0.00-0.03) X10*3/uL Absolute Neuts (auto) 5.8 (2.0-8.3) x10*3/uL Absolute Nucleated RBC 0.000 (0.0-0.012) X10*3/uL Nucleated RBC % (auto) 0.0 (0.0-0.2) /100WBC Sodium 141 (135-145) mmol/L Potassium 4.8 D (3.3-5.1) mmol/L Chloride 110 H (96-108) mmol/L Carbon Dioxide 24 (22-29) mmol/L Anion Gap 12 (12-20) BUN 26 H (9-16) mg/dL Creatinine 0.88 (0.5-1.4) mg/dL Estim Creat Clear Calc 53.6 Estimated GFR > 60 Random Glucose 99 (60-115) mg/dL Calcium 9.7 (8.4-10.2) mg/dL Magnesium 2.3 (1.6-2.6) mg/dL Total Bilirubin 0.2 (0.0-1.0) mg/dL Direct Bilirubin < 0.2 (0.0-0.5) mg/dL AST 20 (5-31) U/L ALT 18 (0-31) U/L Alkaline Phosphatase 109 (39-117) U/L Total Protein 7.3 (6.5-8.0) g/dL Albumin 4.1 (3.5-5.0) g/dL Urine Color RED Urine Appearance Turbid Urine pH 5.0 (5.0-9.0) Ur Specific [place] 1.015 (1.005-1.025) Urine Protein 300 (3+) H (Neg-Trace) mg/dL Urine Glucose (UA) Negative (Negative) mg/dL Urine Ketones 15 (Negative) mg/dL Urine Blood Large (3+) H (Negative) Urine Nitrite Positive H (Negative) Ur Leukocyte Esterase Small (1+) H (Negative) Urine RBC >20 H (0-2) /HPF Urine WBC 21-50 H (0-5) /HPF Ur Squamous Epith Cells 6-10 (0-2) /HPF Urine Bacteria None Seen (None Seen) Hyaline Casts 0-2 (0-2) /LPF Independent Interpretation I performed an independent interpretation of an: Ultrasound (no stone) Radiology Impression Discussion of test interpretation with radiology: I have reviewed the radiologist's reading. External Record Review External record reviewed: Office record Prescription Management I considered prescription management with: Antibiotic Discharge Plan Discharge Clinical Impression: Urinary tract infection Qualifiers: Urinary tract infection type: acute cystitis Hematuria presence: with hematuria Qualified Code(s): N30.01 - Acute cystitis with hematuria Patient Disposition: Home, Self-Care Instructions: Urinary Tract Infection in Women (ED), Hematuria (ED) Additional Instructions: labs reassuring return for worsening bleeding, unable to urinate, vomiting, fevers or any other concerns it is okay to walk but no strenuous exercise while on antibiotics FINDINGS: RIGHT KIDNEY: 9.0 x 4.1 x 4.4 cm (SAG x AP x TRV). Mild fullness right renal pelvis. No renal calculi. Renal cortical thickness is normal. Limited visualization. LEFT KIDNEY: 8.5 x 4.8 x 4.4 cm (SAG x AP x TRV). No hydronephrosis. No renal calculi. Renal cortical thickness is normal. Limited visualization. BLADDER: Partially distended, limiting evaluation. Bilateral ureteral jets are demonstrated. Prevoid bladder volume is 56.9 mL. Postvoid bladder volume images were not obtained as they were not requested by referring physician. US/US retroperitoneal comp IMPRESSION: 1. Mild fullness right renal pelvis. No renal calculi. 2. Limited visualization due to bowel gas Prescriptions: New levofloxacin 500 mg tablet 500 mg PO DAILY Qty: 7 0RF No Action morphine 15 mg tablet 15 mg PO Q6H PRN (Reason: pain) 5 Days Qty: 10 0RF Rx Instructions: Partial Fill upon patient request. amlodipine 10 mg tablet 10 mg PO DAILY Qty: 30 0RF lisinopril 5 mg tablet 5 mg PO DAILY Qty: 30 0RF prednisone 50 mg tablet 50 mg PO DAILY 5 Days Qty: 5 0RF methocarbamol 500 mg tablet 500 mg PO QID Qty: 30 0RF bupropion HCl 150 mg tablet sustained-release 12 hr 150 mg PO BID atorvastatin 40 mg tablet 40 mg PO DAILY Print Language: Indonesian
[2024-02-06 08:00] VITALS: BP 143/57; PULSE 67; TEMP 36.3; O2SAT 97
[2024-02-06 08:29] LABS: MANUAL DIFF FLAG NO
[2024-02-06 08:39] LABS: Appearance Urine Turbid; Glucose Urine UA Negative (Negative); Leukocyte Esterase Urine Small (1+) (Negative); Nitrite Urine Positive (Negative); Specific Gravity - Urine 1.015 (1.005-1.025); UMIC TRIGGER UACC YES; Urine Blood Large (3+) (Negative); Urine Ketones 15 mg/dL (Negative); Urine Protein 300 (3+) mg/dL (Neg-Trace)
[2024-02-06 08:46] LABS: Basophils Absolute Auto 0.1 X10*3/uL (0.0-0.2); Basophils Percent Auto 0.8 % (0-2); Eosinophils Absolute Auto 0.1 X10*3/uL (0.0-0.4); Eosinophils Percent Auto 1.2 % (0-4); Hemoglobin 12.2 g/dl (12.0-16.0); Imm Gran Abs Auto 0.05 X10*3/uL (0.00-0.03); Imm Gran Pct Auto 0.5 % (0.0-0.4); Lymphocytes Absolute Auto 2.8 X10*3/uL (1.2-4.9); Lymphocytes Percent Auto 29.9 % (20-40); Mean Corpuscular Volume 91.1 fL (80.0-98.0); Mean Platelet Volume 11.6 fL (9.4-12.3); Monocytes Absolute Auto 0.6 X10*3/uL (0.1-1.2); Monocytes Percent Auto 6.5 % (2-11); Neutrophils Absolute Auto 5.8 x10*3/uL (2.0-8.3); Neutrophils Percent Auto 61.1 % (45-73); Platelet Count 280 X10*3/uL (160-400); Red Blood Count 4.06 X10*6/uL (4.20-5.50); Red Cell Distribution Width 13.2 % (11.0-16.0); White Blood Count 9.4 X10*3/uL (4.8-10.8)
[2024-02-06 08:47] LABS: Color Urine RED
[2024-02-06 08:54] LABS: Alanine Aminotransferase 18 U/L (0-31); Albumin Level 4.1 g/dL (3.5-5.0); Alkaline Phosphatase 109 U/L (39-117); Anion Gap 12 (12-20); Aspartate Amino Transferase 20 U/L (5-31); Bilirubin Direct < 0.2 mg/dL (0.0-0.5); Bilirubin Total 0.2 mg/dL (0.0-1.0); Blood Urea Nitrogen 26 mg/dL (9-16); Calcium 9.7 mg/dL (8.4-10.2); Carbon Dioxide 24 mmol/L (22-29); Chloride 110 mmol/L (96-108); Creatinine Clr Calc Pharmacy 53.6; Estimated Glomerular Filt Rate > 60; Glucose Random 99 mg/dL (60-115); Magnesium 2.3 mg/dL (1.6-2.6); Potassium 4.8 mmol/L (3.3-5.1); Sodium 141 mmol/L (135-145); Total Protein 7.3 g/dL (6.5-8.0)
[2024-02-06 09:00] LABS: Bacteria Urine None Seen (None Seen); Hyaline Casts Urine 0-2 /LPF (0-2); RBC Urine >20 /HPF (0-2); UACC Culture Trigger YES; WBC Urine 21-50 /HPF (0-5)
[2024-02-06 09:39] VITALS: BP 156/48; PULSE 70; RESP 16; TEMP 36.3; O2SAT 99
== END 2024-02-06 09:40 | disposition home or self-care (01) ==
PROVIDERS: Emergency Provider Emergency Medicine; PCP Physician Assistant Medical
DX: N30.01 Acute cystitis with hematuria (principal); N23 Unspecified renal colic; Z79.899 Other long term (current) drug therapy
CPT/HCPCS: 36415; 76770; 80048; 80076; 81001; 83735; 85025; 87086; 99284